=== PATIENT | male | born 1985 | race Caucasian/White ===

== ENCOUNTER 2017-12-11 22:09 | Emergency (ER) | payer MEDICAID ==
[~2017-12-11] VITALS: Ht 188 cm; Wt 90.7 kg
[2017-12-11 22:55] VITALS: Ht 188 cm; Wt 90.7 kg
[2017-12-12 01:25] VITALS: BP 141/93
== END 2017-12-12 01:25 | disposition home or self-care (01) ==
LOC: ED 22:09 → EDBD 22:09 → ED 12-12 01:25
DX: L72.3 Sebaceous cyst (principal); Z88.5 Allergy status to narcotic agent

== ENCOUNTER 2019-05-27 13:28 | Emergency (ER) | payer SELFPAY ==
[~2019-05-27] VITALS: Ht 185.4 cm; Wt 88.0 kg
[2019-05-27 13:57] VITALS: Ht 185.4 cm; Wt 88.0 kg
[2019-05-27 14:20] LABS: BASOPHIL % 0.5 % (0-2); PLATELET COUNT 262 x10^3mcL (130-400); RED CELL DISTRIBUTION WIDTH 12.8 % (11.5-14.5)
[2019-05-27 15:02] LABS: ALBUMIN 3.5 g/dL (3.4-5.0); ALKALINE PHOSPHATASE 64 U/L (46-116); ALT/SGPT 59 U/L (16-63); AST/SGOT 23 U/L (15-37); BILIRUBIN TOTAL 0.5 mg/dL (0.20-1.00); CALCIUM 9.1 mg/dL (8.5-10.1); CARBON DIOXIDE 28.4 mmol/L (21-32); CHLORIDE SERUM 99 mmol/L (98-107); GLUCOSE SERUM 435 mg/dL (74-106); POTASSIUM SERUM 4.9 mmol/L (3.5-5.1); SODIUM SERUM 134 mmol/L (136-145); TOTAL PROTEIN, SERUM 7.2 g/dL (6.4-8.2)
[2019-05-27 15:40] LABS: GFR1 > 60 mL/min
[2019-05-27 15:50] LABS: CREATININE SERUM 0.8 mg/dL (0.7-1.3)
[2019-05-27 17:43] LABS: microscopic required? NO
[2019-05-27 17:48] LABS: urine erythrocyte NEGATIVE (NEGATIVE)
[2019-05-27 19:23] VITALS: BP 139/94
== END 2019-05-27 19:23 | disposition home or self-care (01) ==
LOC: ED 13:28
PROVIDERS: Emergency Medicine
DX: E11.65 Type 2 diabetes mellitus with hyperglycemia (principal); Z88.5 Allergy status to narcotic agent
CPT/HCPCS: 82962; 87804; J7030